=== PATIENT | female | born 1980 | race Native Hawaiian/Other Pacific Islander ===

== ENCOUNTER 2016-09-06 11:10 | Emergency (ER) | payer OTHER ==
[2016-09-06 11:20] VITALS: BP 97/65
== END 2016-09-06 16:40 | disposition left against medical advice (07) ==
LOC: ED 11:10
DX: R10.9 Unspecified abdominal pain (principal); R07.9 Chest pain, unspecified; Z53.21 Procedure and treatment not carried out due to patient leaving prior to being seen by health care provider
CPT/HCPCS: 93005

== ENCOUNTER 2016-09-07 00:34 | Inpatient (IN) | payer OTHER ==
[2016-09-07] MEDS ORDERED: Ketorolac INJ* 30 MG/ML 1 ML VIAL ONE (01:33)
[2016-09-07] MEDS ORDERED: Morphine INJ* 4 MG/ML 1 ML CARPUJECT ONE (01:33)
[2016-09-07] MEDS ORDERED: Ondansetron INJ* 2 MG/ML VIAL ONE (01:33)
[2016-09-07] MEDS ORDERED: Ondansetron INJ* 2 MG/ML VIAL IV ONE (01:34)
[2016-09-07] MEDS ORDERED: Ketorolac INJ* 30 MG/ML 1 ML VIAL IM ONE (01:34)
[2016-09-07] MEDS ORDERED: NS 0.9% 1000 ML* 1,000 ML IV ONE (01:34)
[2016-09-07] MEDS ORDERED: Morphine INJ* 2 MG/ML 1 ML CARPUJECT IV ONE (01:47)
[2016-09-07 01:48] LABS: Hematocrit 38 % (35-47); Hemoglobin 12.5 g/dl (12.0-16.0); Mean Corpuscular HGB Conc 33 g/dl (31-36); Mean Corpuscular Hemoglobin 28 pg (27-31); Mean Corpuscular Volume 86 fL (80-97); Mean Platelet Volume 10 um3 (7.4-10.4); Red Blood Count 4.42 10^6/ul (4.0-5.4); Red Cell Distribution Width 13 % (10.5-15); White Blood Count 6.3 10^3/ul (3.5-10.8)
[2016-09-07] MEDS: Morphine INJ* 4 MG/ML 1 ML CARPUJECT IV ONE ×2 (01:48→01:49)
[2016-09-07] MEDS ORDERED: Ketorolac INJ* 30 MG/ML 1 ML VIAL IV PUSH ONE (01:52)
[2016-09-07 02:00] LABS: AST 589 U/L (13-39); Albumin 4.1 g/dL (3.2-5.2); Alkaline Phosphatase 148 U/L (34-104); Anion Gap 6 mmol/L (2-11); BUN/Creatinine Ratio 15.3 (8-20); Blood Urea Nitrogen 11 mg/dL (6-24); CO2 Carbon Dioxide 26 mmol/L (22-32); Calcium 9.2 mg/dL (8.6-10.3); Chloride 102 mmol/L (101-111); EGFR African American 117.9 (>60); EGFR Non-African American 91.7 (>60); Globulin 3.1 g/dL (2-4); Glucose 127 mg/dL (70-100); Lipase 24 U/L (11.0-82.0); Potassium 3.5 mmol/L (3.5-5.0); Sodium 134 mmol/L (133-145); Total Protein 7.2 g/dL (6.4-8.9)
[2016-09-07 02:22] LABS: ALT 668 U/L (7-52)
[2016-09-07 03:47] LABS: Urine Bilirubin Negative (Negative); Urine Glucose Negative (Negative); Urine Nitrite Negative (Negative)
--- NOTE | 2016-09-07 05:28 | ED ---
Bola Hawthorne Aidan, scribed for Mihir Sotouel on 09/07/16 at 0151 . Abdominal Pain/Female - HPI Summary HPI Summary: 36 y/o female presents to the ED with a complaint of acute, constant, severe (10 /10) abdominal pain that began 4 days ago and suddenly became severe today. Associated symptoms include vomiting and abnormal BMs. Pt denies any alleviating or aggravating factors. Hx of cholecystectomy. - History of Current Complaint Chief Complaint: EDAbdPain Stated Complaint: RIGHT SIDED ABD PAIN Time Seen by Provider: 09/07/16 01:15 Hx Obtained From: Patient, Family/Minister Assistant Onset/Duration: Sudden Onset, Lasting Hours - intense pain began today with sudden onset, Lasting Days - Her pain started mildly 4 days ago, Still Present Timing: Constant Severity Initially: Mild Severity Currently: Severe Pain Intensity: 10 Pain Scale Used: 0-10 Numeric Location: Discrete At: RUQ, Discrete At: RLQ Radiates: No Character: Sharp Aggravating Factor(s): Other: - unknown Alleviating Factor(s): Other: - unknown Associated Signs and Symptoms: Positive: Vomiting, Other: - abnormal BMs Allergies/Adverse Reactions: Allergies Allergy/AdvReac Type Severity Reaction Status Date / Time Isoniazid Allergy Swelling Verified 09/06/13 14:47 Of Face,Lips,& Throat PMH/Surg Hx/FS Hx/Imm Hx Infectious Disease History: No Infectious Disease History: Reports: Traveled Outside the in Last 30 Days - [place] - Family History Known Family History: Positive: Hypertension - Social History Occupation: Employed Full-time Lives: With Family Alcohol Use: None Substance Use Type: Reports: None Smoking Status (MU): Never Smoked Tobacco Have You Smoked in the Last Year: No Review of Systems Constitutional: Negative Eyes: Negative ENT: Negative Cardiovascular: Negative Respiratory: Negative Positive: Abdominal Pain, Vomiting, Other - abnormal BMs. Negative: Diarrhea, Nausea Genitourinary: Negative Musculoskeletal: Negative Skin: Negative Neurological: Negative Psychological: Normal All Other Systems Reviewed And Are Negative: Yes Physical Exam Triage Information Reviewed: Yes Vital Signs On Initial Exam: Initial Vitals Temp Pulse Resp BP Pulse Ox 99.1 F 50 16 116/49 100 09/07/16 00:35 09/07/16 00:35 09/07/16 00:35 09/07/16 00:35 09/07/16 00:35 Vital Signs Reviewed: Yes Appearance: Positive: Well-Appearing, Pain Distress. Negative: No Pain Distress Skin: Positive: Warm, Skin Color Reflects Adequate Perfusion, Dry Head/Face: Positive: Normal Head/Face Inspection Eyes: Positive: EOMI, PRATIK ENT: Positive: Normal ENT inspection Neck: Positive: Supple, Nontender Respiratory/Lung Sounds: Positive: Clear to Auscultation, Breath Sounds Present Cardiovascular: Positive: RRR, Pulses are Symmetrical in both Upper and Lower Extremities Abdomen Description: Positive: Soft. Negative: Nontender - RLQ and RUQ tenderness Bowel Sounds: Positive: Present Musculoskeletal: Positive: Strength/ROM Intact Neurological: Positive: Sensory/Motor Intact, Alert, Oriented to Person Place, Time Psychiatric: Positive: Affect/Mood Appropriate AVPU Assessment: Alert Diagnostics - Vital Signs Vital Signs Temp Pulse Resp BP Pulse Ox 09/07/16 00:35 99.1 F 50 16 116/49 100 - Laboratory Result Diagrams: 09/07/16 01:10 09/07/16 01:10 Lab Statement: Any lab studies that have been ordered have been reviewed, and results considered in the medical decision making process. - CT ABD/PEL CT CT Interpretation: No Acute Changes - FINDINGS: THERE IS NO RIGHT OR LEFT URINARY TRACT STONE OR OBSTRUCTION. NO BOWEL OBSTRUCTION, FREE AIR, OR FREE LIQUID. NEGATIVE FOR DIVERTICULITIS OR COLITIS. NORMAL APPENDIX VISUALIZED. NORMAL LIVER. THE COMMON BILE DUCT IS DILATED. THIS MAY BE A POST CHOLECYSTECTOMY FINDING. HOWEVER IT IS MORE DILATED THAN IT WAS IN 2010. CORRELATION WITH LIVER ENZYMES RECOMMENDED TO MAKE SURE THERE IS NO BILIARY OBSTRUCTION. NORMAL SPLEEN. NORMAL PANCREAS. NORMAL ADRENAL GLAND. NO OTHER ACUTE INTRA-ABDOMINAL ABNORMALITIES. - Ultrasound No standard instances Ultrasound Interpretation: Positive (See Comments) - PELVIC US IMPRESSION: 2.7CM SIMPLE RIGHT OVARIAN CYST WITHOUT TORSION OR FREE LIQUID. Ultrasound Interpretation Completed By: Radiologist - PEST CONTROL WORKER HELPER Abdominal Pain Fem Course/Dx - Course Course Of Treatment: This is a 36 y/o female presenting with acute, constant, severe (/10) abdominal pain that began 4 days ago and suddenly became severe today. Associated symptoms include vomiting and abnormal BMs. Hx of cholecystectomy. She will be given morphine to reduce her pain. - Diagnoses Provider Diagnoses: Abdominal pain, Ovarian cyst Discharge - Discharge Plan Condition: Stable Disposition: HOME Discharge Disposition Comment: Please follow up with your primary care physician in the next 3 days. Prescriptions: Naproxen [Naproxen Dr] 500 mg PO TID #21 tab Patient Education Materials: Acute Abdominal Pain (ED), Ovarian Cyst (ED) The documentation as recorded by the Bola mary Aidan accurately reflects the service I personally performed and the decisions made by Brittany batista Emmanuel.
--- NOTE | 2016-09-07 07:49 | RAD ---
CLINICAL HISTORY: Right flank pain COMPARISON: July 02, 2010 TECHNIQUE: Multiple contiguous axial CT scans were obtained of the abdomen and pelvis, without intravenous contrast enhancement. Coronal and sagittal multiplanar reformations are submitted for review. Oral contrast was not administered. FINDINGS: The study is limited by the lack of intravenous contrast. This limits evaluation of the solid organs and vasculature. LUNG BASES: The lung bases are clear. LIVER: The liver is normal in shape, size, contour, and attenuation. BILE DUCTS: There is fusiform dilatation of the common duct up to 1.5 cm. This extends to the level of the ampulla. There is mild intrahepatic biliary dilatation. This has progressed from the 2010 examination GALLBLADDER: The gallbladder is not visualized. . PANCREAS: The pancreas is normal, without mass or ductal dilatation. SPLEEN: Normal in size and appearance. UPPER GI TRACT: Evaluation of the gastrointestinal tract is limited by incomplete gastric distention. The upper GI tract is unremarkable. SMALL BOWEL AND MESENTERY: The small bowel is normal in contour, course, and caliber. There is no obstruction or dilatation. COLON: The colon is normal in contour, course, caliber. There is no pericolonic inflammatory change. There is a tubular, vermiform, hollow viscus that is blind ending, and originates from the cecum, consistent with a normal appendix. There is no periappendiceal inflammatory change. ADRENALS: Normal bilaterally. KIDNEYS: The kidneys are normal in shape, size, contour, and axis. There is no hydronephrosis or nephrolithiasis. BLADDER: The bladder is incompletely distended but is grossly normal. PELVIC ORGANS: There is a 2.6 cm cystic lesion of the right hemipelvis. Pelvic organs otherwise normal for patient age and technique. AORTA: The aorta is normal. IVC: Unremarkable LYMPH NODES: There is no lymphadenopathy by size criteria. ABDOMINAL WALL: There is a small fat-containing of focal hernia. BONES AND SOFT TISSUES: There are mild diffuse degenerative changes. OTHER: None IMPRESSION: 1. 2.6 CM CYSTIC LESION OF THE RIGHT HEMIPELVIS, POSSIBLY AN OVARIAN CYST. 2. BILIARY DILATATION, PROGRESSED FROM 2010. 3. NO HYDRONEPHROSIS OR NEPHROLITHIASIS.
--- NOTE | 2016-09-07 07:53 | RAD ---
INDICATION: Right lower quadrant pain COMPARISON: None. TECHNIQUE: Real-time transabdominal only ultrasound examination of the female pelvis including grayscale and Doppler color flow imaging. FINDINGS: Uterus: The uterus is normal in size and echogenicity measuring 8.6 x 4.7 x 5.9 cm. The endometrial stripe is smooth and uniform measuring 11 mm in thickness. Ovaries: The right and left ovary measure 4.2 x 2.8 x 4.0 cm and 3.6 x 1.9 x 2.3 cm, respectively. Normal arterial and venous waveforms are identified. An avascular and anechoic structure in the right ovary measuring 2.7 cm in greatest dimension and is most consistent with a dominant follicle. Appearance is within normal limits for the patient's age. There is no free fluid in the cul-de-sac. IMPRESSION: Normal and age-appropriate pelvic ultrasound.
[2016-09-07] MEDS ORDERED: Morphine INJ* 2 MG/ML 1 ML CARPUJECT IV PRN (08:30)
--- NOTE | 2016-09-07 08:37 | RAD ---
HISTORY: Right upper quadrant pain, status post cholecystectomy COMPARISONS: CT dated September 07, 2016, ultrasound dated March 26, 2012 TECHNIQUE: Multiple transverse and longitudinal ultrasound images were obtained of the right upper quadrant of the abdomen using grayscale and color Doppler imaging. FINDINGS: LIVER: The liver is normal in shape, size, contour, and echogenicity. There are no focal parenchymal masses. There is normal hepatopedal flow of the portal vein on Doppler imaging. BILIARY TREE: There is dilatation of the common duct up to 1.4 cm to the level of the pancreatic head. This has progressed compared to the March 26, 2012 examination. GALLBLADDER: The patient is status post cholecystectomy. PANCREAS: The head of the pancreas is unremarkable. The tail of the pancreas is not well visualized secondary to overlying bowel gas. RIGHT KIDNEY: The right kidney is normal in shape, size, contour, and echogenicity. There is no hydronephrosis or nephrolithiasis. The right kidney measures 11 x 3.2 x 5.3 cm. AORTA AND IVC: The aorta and IVC are unremarkable. FLUID: There are no pleural effusions. There is no free fluid within the hepatorenal recess. OTHER FINDINGS: None. IMPRESSION: 1. DILATATION OF THE COMMON DUCT UP TO 1.4 CM, PROGRESSED FROM THE PREVIOUS EXAMINATION. 2. STATUS POST CHOLECYSTECTOMY
[2016-09-07 09:25] LABS: TSH (Thyroid Stimulating Horm) 0.41 mcIU/mL (0.34-5.60)
--- NOTE | 2016-09-07 12:21 | HP ---
ADMISSION HISTORY AND PHYSICAL: DATE OF ADMISSION: 09/07/16 PRIMARY CARE PROVIDER: Previously Vandana Bauman MD, now [facility], none assigned. HEALTHCARE PROXY: Her . CODE STATUS: Full. SOURCE OF INFORMATION: History obtained from interview with the patient, review of past medical records. RELIABILITY: Good. CHIEF COMPLAINT: Abdominal pain. 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 Four days prior, began to feel bloated with abdominal discomfort. She changed her diet, started eating less rice and increased her vegetable and fruit intake, however, 2 days prior to presentation she had increased pain. She presented to the emergency room yesterday after taking Tums without good effect. However, left prior to being seen because of the long wait. Overnight, her pain increased, described as sharp, right sided radiating around to her back, it has been constant. She had nausea and vomiting 3 times and several bowel movements that were not loose or diarrhea. She noticed her bowel movement was black, but also indicates that she had taken a pink substance, vomited most of it, which may have represented Bismuth salicylate. She did not have relief with the nausea, vomiting, or bowel movements, developed lightheadedness and presented to the emergency room for evaluation. Again, the pain was sharp, right sided, radiating around the back, constant for 4 days, no better or worse with food intake. She notes that it feels similar to the last time she presented with abdominal pain and elevated LFTs, although this is more strong or intense. In the emergency room, she received ketorolac and morphine, Zofran with adequate relief of pain and the hospitalist service was consulted for admission. When seen by the author, the patient was interactive and in no pain, had no active complaints. REVIEW OF SYSTEMS: As per HPI. Otherwise, all other systems negative. PAST MEDICAL HISTORY: 1. Cholecystectomy in 2006. 2. Hepatitis A at age 16. 3. Episode of increased LFTs while on isoniazid in the setting of questionable pancreatitis, that resolved spontaneously. 4. History of positive PPD. The patient reports that she had BCG vaccination in [place]. 5. History of bradycardia. SOCIAL HISTORY: No tobacco, alcohol, or illicits. FAMILY HISTORY: Grandmother with liver cancer, no history of CAD. ALLERGIES: To ISONIAZID. MEDICATIONS: None, did take Tums as well as pink liquid, which I suspect to be Bismuth salicylate. PHYSICAL EXAMINATION GENERAL: Lying 20 degrees, interactive and pleasant, in no apparent distress. VITAL SIGNS: When seen by this author, 112/60, heart rate 66, respiratory rate 16, oxygen saturation 98% on room air, T-max in the emergency room 99.1. HEENT: Oropharynx is clear. She has moist mucous membranes. Sclerae are anicteric, although she notes there may have been increasingly yellow over the last couple of days, cannot say if they are changed at this time. NECK: No cervical or supraclavicular lymphadenopathy. No goiter. HEART: She has regular rate and rhythm. No murmurs, rubs, or gallops. LUNGS: Lungs are clear to auscultation. ABDOMEN: Soft, nontender, and nondistended. Positive bowel sounds throughout. EXTREMITIES: Warm and well perfused without clubbing, cyanosis, or edema. NEUROLOGIC: She is alert and oriented x3. Cranial nerves are intact, although does note right side of her face potentially more numb than the left. Gait not assessed. PSYCH: No anxiety, agitation, or depression. DIAGNOSTIC STUDIES: Notable labs include glucose 127, total bilirubin 1.5, nonfractionated. AST 589, ALT is 668, alk phos is 148, total protein 7.2, albumin 4.1, lipase 24, beta hCG less than 0.6. INR 0.97. White blood cell count 6.3, hemoglobin 12.5, platelets 153. Urine notable for 1+ ketones, specific gravity 1.009. PERTINENT DATA: Official reads are not yet returned. CT abdomen and pelvis overnight read, left urinary tract stone. No bowel obstruction, free air or free liquid. Negative for diverticulitis/colitis. No normal appendix is visualized, normal liver. Common bile duct is dilated. This may be a postcholecystectomy findings, however, it is more dilated than it was in 2010. Recommendation was made to correlate with liver enzymes. Normal adrenal glands. No other acute intraabdominal abnormalities. The official read for pelvic ultrasound as well as right upper quadrant ultrasound are pending at this time. EKG with normal sinus bradycardia 44 beats per minute with normal limit axis, intervals. No ST or T wave changes. ASSESSMENT AND PLAN: This is a 36-year-old female returning with abdominal pain found with hepatitis. Increased transaminitis representing hepatitis, unknown etiology. She had similar episodes approximately 7 years that resolved spontaneously. It is unclear from our documentation whether it is in the setting of pancreatitis, although the patient does indicate a setting of pancreatitis, I believe one of the notes indicate an elevated lipase. That episode resolve spontaneously. We will check antismooth muscle and antimitochondrial, BREE titers. Consult Gastroenterology, await official reads from right upper quadrant ultrasound as well as transvaginal ultrasound, and trend LFTs. Place the patient on low-fat diet, continue to monitor. The patient may benefit from an MRCP, which was the plan in 2009 before the pain and the LFTs resolved spontaneously. Bradycardia. Now normal sinus rhythm with ventricular rate of 65. History of black stool x1 overnight. Suspect in the setting Bismuth salicylate ingestion. We will check CBC tomorrow. No additional intervention. Low suspicion for GI bleed. DVT prophylaxis. Low risk. Ambulate ad mo. Code Status. Full. [id number]/[facility] #: [id number] MTDD
[2016-09-07] MEDS: Ondansetron INJ* 2 MG/ML VIAL IV PRN ×2 (13:37→19:49)
[2016-09-07] MEDS: oxyCODONE TAB* 5 MG TAB PO PRN (14:22)
[2016-09-07] MEDS: Morphine INJ* 4 MG/ML 1 ML CARPUJECT IV PRN ×2 (15:08→19:49)
[2016-09-08] MEDS: Morphine INJ* 4 MG/ML 1 ML CARPUJECT IV PRN ×5 (00:41→22:49)
--- NOTE | 2016-09-08 03:48 | CONS ---
CONSULTATION REPORT: DATE OF CONSULTATION: 09/07/16 REQUESTING PHYSICIAN: Dr. Johnston. INDICATION: Abdominal pain. NARRATIVE: Mrs. Espino is a 36-year-old female who is status post cholecystectomy, has a distant history of hepatitis A and positive PPD, who comes in just not feeling well. She states that she was having diffuse abdominal pain and feeling weak. She did have nausea, 3 episodes of vomiting. She states that her stools had been normal up until last night and she had some loose stools. No blood in the stool. No unintentional weight loss. Her appetite is diminished. She denied any new medications, no sick contacts. She had been feeling fine up until a few days ago. Of note, she had a similar presentation in 2009 with similar symptoms at which time, it was felt that she had passed a gallstone. The patient states that these symptoms are more intense than the ones last time. PAST MEDICAL HISTORY: Please see the HPI. MEDICATION: None. ALLERGIES: To ISONIAZID. FAMILY HISTORY: Liver cancer, coronary artery disease. SOCIAL HISTORY: No tobacco or alcohol. REVIEW OF SYSTEMS: 12 systems were reviewed, other than that mentioned in the HPI were unremarkable. PHYSICAL EXAM: Temperature is 98.1, blood pressure is 114/71, pulse is 47. General: A mildly ill-appearing female; in no apparent distress; sitting up in bed, talking with her 4 children. Alert, oriented, pleasant, and fluent. HEENT : Mucous membranes are moist without lesions, ulcers, or exudate. Head is normocephalic, atraumatic. Neck: Supple. Trachea is midline. Heart: Regular rate and rhythm. Lungs: Clear to auscultation. Abdomen: Positive bowel sounds. Soft, nondistended. No hepatosplenomegaly, masses. She is mildly diffusely tender throughout. No rebound and no guarding. DIAGNOSTIC STUDIES/LAB DATA: Of note, hepatitis A, B and C are negative. White count is 6.3, hemoglobin is 12.5, platelets of 153, INR is 0.97, bilirubin is 1.5. AST is 589, ALT 668, alk phos is 148. CT shows an ovarian cyst. Right upper quadrant ultrasound shows a 1.4 cm common bile duct. ASSESSMENT AND PLAN: This is a pleasant 36-year-old female who possibly could have had a passed gallstone, mononucleosis, autoimmune hepatitis, primary biliary cirrhosis. Her hepatitis panel is negative so far. Her labs really do not improve and I think by tomorrow, we should obtain an MRCP. We will continue to follow. [id number]/[facility] #: [id number] JEFF
[2016-09-08 06:47] LABS: Hematocrit 36 % (35-47); Hemoglobin 11.9 g/dl (12.0-16.0); Mean Corpuscular HGB Conc 33 g/dl (31-36); Mean Corpuscular Hemoglobin 28 pg (27-31); Mean Corpuscular Volume 86 fL (80-97); Mean Platelet Volume 10 um3 (7.4-10.4); Red Cell Distribution Width 13 % (10.5-15); White Blood Count 5.1 10^3/ul (3.5-10.8)
[2016-09-08 07:00] LABS: Albumin 3.6 g/dL (3.2-5.2); BUN/Creatinine Ratio 10.8 (8-20); Calcium 8.5 mg/dL (8.6-10.3); Direct Bilirubin 0.2 mg/dL (0.03-0.18); EGFR African American 114.2 (>60); EGFR Non-African American 88.8 (>60); Globulin 2.9 g/dL (2-4); Indirect Bilirubin 0.6 mg/dL (0.3-1.0); Potassium 3.5 mmol/L (3.5-5.0); Total Bilirubin 0.8 mg/dL (0.2-1.0); Total Protein 6.5 g/dL (6.4-8.9)
[2016-09-08] MEDS ORDERED: Influenza VAC *QUAD* 2016-17* 0.5 ML SYRINGE IM ONE (09:00)
[2016-09-08] MEDS: Ondansetron INJ* 2 MG/ML VIAL IV PRN ×2 (09:36→19:04)
[2016-09-08] MEDS: oxyCODONE TAB* 5 MG TAB PO PRN (10:25)
[2016-09-08] MEDS ORDERED: HYDROmorphone INJ* 1 MG/ML CARPUJECT SYRINGE IV SLOW PU ONE (11:13)
[2016-09-08] MEDS ORDERED: Polyethylene Glycol 3350* 17 GM PACKET PO PRN (15:38)
[2016-09-08 16:04] LABS: Smooth Muscle Antibody Negative (Negative)
[2016-09-08] MEDS: Docusate CAP* 100 MG PO PRN (16:22)
[2016-09-08 16:25] LABS: Mitochondria M2 Antibody <0.1 U
--- NOTE | 2016-09-08 18:22 | PN ---
Subjective Date of Service: 09/08/16 Interval History: Pain improved overnight however severe exacerbation after eating breakfast Developed nausea without vomiting tolerated clear liquids in the afternoon better Objective Active Medications: Docusate Sodium (Colace Cap*) 200 mg PO DAILY PRN PRN Reason: CONSTIPATION Last Admin: 09/08/16 16:22 Dose: 200 mg Morphine Sulfate (Morphine Inj (Syringe)*) 2 mg IV Q2H PRN PRN Reason: PAIN Ondansetron HCl (Zofran Inj*) 4 mg IV Q4H PRN PRN Reason: NAUSEA Last Admin: 09/08/16 09:36 Dose: 4 mg Oxycodone HCl (Roxycodone Tab*) 5 mg PO Q6H PRN PRN Reason: PAIN Last Admin: 09/08/16 10:25 Dose: 5 mg Polyethylene Glycol/Electrolytes (Miralax*) 17 gm PO DAILY PRN PRN Reason: CONSTIPATION Vital Signs 09/08/16 16:14 Temperature 98.2 F Oxygen Devices in Use Now: None Appearance: NAD Eyes: No Scleral Icterus, PERRLA Ears/Nose/Mouth/Throat: NL Teeth, Lips, Gums, Clear Oropharnyx, Mucous Membranes Moist Neck: NL Appearance and Movements; NL JVP, Trachea Midline Respiratory: Symmetrical Chest Expansion and Respiratory Effort, Clear to Auscultation Cardiovascular: NL Sounds; No Murmurs; No JVD, RRR Abdominal: - - mild TTP RUQ, soft, ND, +bs Extremities: No Edema Skin: No Rash or Ulcers Neurological: Alert and Oriented x 3 Result Diagrams: 09/08/16 05:58 09/08/16 05:58 Assess/Plan/Problems-Billing Assessment: 36 yo F h/o cholecystectomy with episode of elevated LFTs 3 years later ( possibly in setting of pancraetitis) now returning with similar presentation of abdominal pain and elevated LFTs spontaneously resolving - Patient Problems (1) Hepatitis Comment: LFTs resolving If pain continues will plan on MRCP test for autoimmune hepatitis and primary biliary cirrhosis pending (2) Bradycardia Comment: baseline stable (3) DVT prophylaxis Comment: low risk ambulate ad mo
[2016-09-09] MEDS: Morphine INJ* 4 MG/ML 1 ML CARPUJECT IV PRN (05:58)
[2016-09-09 06:30] LABS: Albumin 3.7 g/dL (3.2-5.2); Direct Bilirubin 0.2 mg/dL (0.03-0.18); Indirect Bilirubin 0.4 mg/dL (0.3-1.0); Total Bilirubin 0.6 mg/dL (0.2-1.0); Total Protein 6.7 g/dL (6.4-8.9)
[2016-09-09] MEDS: Docusate CAP* 100 MG PO PRN (08:09)
[2016-09-09] MEDS ORDERED: Influenza VAC *QUAD* 2016-17* 0.5 ML SYRINGE IM ONE (09:00)
--- NOTE | 2016-09-09 11:44 | RAD ---
Indication: Abnormal liver enzymes, abdominal pain. Image sequences: Coronal T2, axial T2 fat sat images of the biliary system was obtained. Multiple maximum intensity projection images were obtained. The patient is status post cholecystectomy. There is a dilated common hepatic duct and common bile duct. The maximum diameter of the common hepatic duct is approximately 19 mm with no evidence of filling defect. I cannot totally exclude an ampullary lesion. The distal common duct is not well visualized. The left and right hepatic ducts are intact. No retroperitoneal adenopathy is noted. No dilated loops of bowel are noted. Small pleural effusions are noted. IMPRESSION: Common hepatic duct measures up to 19 mm. No filling defects are noted in the common duct. I cannot totally exclude a ampullary lesion. Small pleural effusions are noted.
[2016-09-09] MEDS: oxyCODONE TAB* 5 MG TAB PO PRN ×3 (15:18→23:27)
[2016-09-09] MEDS ORDERED: HYDROmorphone TAB* 2 MG PO ONE (17:07)
--- NOTE | 2016-09-09 18:09 | PN ---
Subjective Date of Service: 09/09/16 Interval History: Seen and examined Pain is still persistent which is burning and comes in waves Feels pains are independent of food now No N/V Objective Active Medications: Docusate Sodium (Colace Cap*) 200 mg PO DAILY PRN PRN Reason: CONSTIPATION Last Admin: 09/09/16 08:09 Dose: 200 mg Ondansetron HCl (Zofran Inj*) 4 mg IV Q4H PRN PRN Reason: NAUSEA Last Admin: 09/08/16 19:04 Dose: 4 mg Oxycodone HCl (Roxycodone Tab*) 15 mg PO Q4H PRN PRN Reason: PAIN Last Admin: 09/09/16 15:18 Dose: 15 mg Polyethylene Glycol/Electrolytes (Miralax*) 17 gm PO DAILY PRN PRN Reason: CONSTIPATION Vital Signs 09/08/16 09/08/16 09/08/16 19:01 20:01 22:49 Temperature Pulse Rate Respiratory 16 16 20 Rate Blood Pressure (mmHg) O2 Sat by Pulse Oximetry 09/08/16 09/08/16 09/09/16 23:19 23:49 01:13 Temperature 98.2 F Pulse Rate 50 Respiratory 17 16 20 Rate Blood Pressure 115/60 (mmHg) O2 Sat by Pulse 100 Oximetry 09/09/16 09/09/16 09/09/16 05:58 06:58 07:17 Temperature 96.9 F Pulse Rate 48 Respiratory 20 16 20 Rate Blood Pressure 108/55 (mmHg) O2 Sat by Pulse 100 Oximetry 09/09/16 09/09/16 09/09/16 08:00 15:18 15:21 Temperature 98.0 F Pulse Rate 54 Respiratory 20 16 16 Rate Blood Pressure 127/66 (mmHg) O2 Sat by Pulse 100 Oximetry 09/09/16 17:15 Temperature Pulse Rate Respiratory 18 Rate Blood Pressure (mmHg) O2 Sat by Pulse Oximetry Oxygen Devices in Use Now: None Appearance: NAD Eyes: No Scleral Icterus, PERRLA Ears/Nose/Mouth/Throat: NL Teeth, Lips, Gums, Clear Oropharnyx, Mucous Membranes Moist Neck: NL Appearance and Movements; NL JVP, Trachea Midline Respiratory: Symmetrical Chest Expansion and Respiratory Effort, Clear to Auscultation Cardiovascular: NL Sounds; No Murmurs; No JVD, RRR Abdominal: No Hepatosplenomegaly, - - soft, mild TTP RUQ, +bs, ND Lymphatic: No Cervical Adenopathy, No Axillary Adenopathy Extremities: No Edema Skin: No Rash or Ulcers Neurological: Alert and Oriented x 3 Result Diagrams: 09/08/16 05:58 09/08/16 05:58 Assess/Plan/Problems-Billing Assessment: 36 yo F h/o cholecystectomy with episode of elevated LFTs 3 years later ( possibly in setting of pancraetitis) now returning with similar presentation of abdominal pain and elevated LFTs spontaneously resolving - Patient Problems (1) Hepatitis Comment: LFTs resolving CBD greatly distended on MRCP with concern for ampullary lesion Discussed with Dr. Longo, pt will need ERCP as outpatient. He will arrange follow up through his office with Dr. Pollard. Plan is to control pain at this point until pt receives ERCP (2) Bradycardia Comment: baseline stable (3) DVT prophylaxis Comment: low risk ambulate ad mo Status and Disposition: likely tomorrow if pain controlled
[2016-09-10] MEDS: oxyCODONE TAB* 5 MG TAB PO PRN ×4 (04:07→21:40)
[2016-09-10 06:27] LABS: Direct Bilirubin 0.2 mg/dL (0.03-0.18); Globulin 3.4 g/dL (2-4); Indirect Bilirubin 0.3 mg/dL (0.3-1.0); Total Bilirubin 0.5 mg/dL (0.2-1.0); Total Protein 7.4 g/dL (6.4-8.9)
[2016-09-10] MEDS: Docusate CAP* 100 MG PO PRN (08:10)
[2016-09-10] MEDS ORDERED: Influenza VAC *QUAD* 2016-17* 0.5 ML SYRINGE IM ONE (09:00)
--- NOTE | 2016-09-10 10:01 | PN ---
Subjective Date of Service: 09/10/16 Interval History: Pt is feeling about the same except this AM while in the shower she states she developed some dizziness. She states she feels weak. She states the RUQ pain is about the same and is only manageable with taking pain medication q4hr. She states that eating even jello makes her pain worse. Objective Active Medications: Docusate Sodium (Colace Cap*) 200 mg PO DAILY PRN PRN Reason: CONSTIPATION Last Admin: 09/10/16 08:10 Dose: 200 mg Ondansetron HCl (Zofran Inj*) 4 mg IV Q4H PRN PRN Reason: NAUSEA Last Admin: 09/08/16 19:04 Dose: 4 mg Oxycodone HCl (Roxycodone Tab*) 15 mg PO Q4H PRN PRN Reason: PAIN Last Admin: 09/10/16 08:10 Dose: 15 mg Polyethylene Glycol/Electrolytes (Miralax*) 17 gm PO DAILY PRN PRN Reason: CONSTIPATION Vital Signs 09/09/16 09/09/16 09/09/16 15:18 15:21 17:15 Temperature 98.0 F Pulse Rate 54 Respiratory 16 16 18 Rate Blood Pressure 127/66 (mmHg) O2 Sat by Pulse 100 Oximetry 09/09/16 09/09/16 09/09/16 17:18 19:15 19:35 Temperature Pulse Rate Respiratory 16 18 18 Rate Blood Pressure (mmHg) O2 Sat by Pulse Oximetry 09/09/16 09/09/16 09/09/16 20:00 21:35 23:00 Temperature 97.6 F Pulse Rate Respiratory 18 18 Rate Blood Pressure (mmHg) O2 Sat by Pulse Oximetry 09/09/16 09/09/16 09/10/16 23:27 23:38 01:27 Temperature Pulse Rate 48 Respiratory 20 16 20 Rate Blood Pressure 119/73 (mmHg) O2 Sat by Pulse 100 Oximetry 09/10/16 09/10/16 09/10/16 04:07 06:07 07:36 Temperature 97.5 F Pulse Rate 51 Respiratory 18 18 15 Rate Blood Pressure 104/65 (mmHg) O2 Sat by Pulse 100 Oximetry 09/10/16 08:10 Temperature Pulse Rate Respiratory 16 Rate Blood Pressure (mmHg) O2 Sat by Pulse Oximetry Oxygen Devices in Use Now: None Appearance: Young female sitting up in bed, NAD Eyes: No Scleral Icterus Ears/Nose/Mouth/Throat: Mucous Membranes Moist Respiratory: Symmetrical Chest Expansion and Respiratory Effort, Clear to Auscultation Cardiovascular: NL Sounds; No Murmurs; No JVD, RRR, No Edema Abdominal: - - + BS, soft, ND, tender to palpation in RUQ Extremities: No Clubbing, Cyanosis Skin: No Rash or Ulcers, No Nodules or Sclerosis Neurological: Alert and Oriented x 3 Result Diagrams: 09/08/16 05:58 09/08/16 05:58 Assess/Plan/Problems-Billing Ms Espino is a 36 yo F who has a h/o cholecystectomy followed by an episode of elevated LFTs and abdominal pain who presented to the ER with c/o abdominal pain and was found again to have elevated LFTs. - Patient Problems (1) Hepatitis Current Visit: Yes Status: Acute Comment: LFTs are trending down except the alkaline phosphatase that has increased. CBD and common hepatic duct are dilated on MRCP. Will discuss with Dr. Longo as pt's symptoms are no better today. She continues to have pain in the RUQ. ? stretch of the liver capsule vs pain secondary to the hepatitis. Testing for autoimmune processes are negative. Heptatits panel is negative. ? ERCP as inpatient vs outpatient. (2) Dizziness Current Visit: Yes Status: Acute Code(s): R42 - DIZZINESS AND GIDDINESS SNOMED Code(s): 606799652 Comment: This am the patient c/o becoming dizzy and weak. She states she was in the shower when this developed. Worse with looking left. She describes a spinning sensation. She has not been eating much and taking oxycodone 15mg q4hr and I wonder if this is contributing some to her dizziness. Will try meclizine and monitor her symptoms. (3) Bradycardia Current Visit: Yes Status: Acute Code(s): R00.1 - BRADYCARDIA, UNSPECIFIED SNOMED Code(s): 18733397 Comment: Stable and baseline. (4) DVT prophylaxis Current Visit: Yes Status: Acute Code(s): [id number] - SNOMED Code(s): 056662880 Comment: ambulation (5) Full code status Current Visit: Yes Status: Acute Code(s): Z78.9 - OTHER SPECIFIED HEALTH STATUS SNOMED Code(s): 754345299 Status and Disposition: .
[2016-09-10] MEDS: Meclizine TAB* 12.5 MG PO SCH ×3 (11:56→21:40)
[2016-09-10] MEDS ORDERED: Polyethylene Glycol 3350* 17 GM PACKET PO SCH (21:00)
[2016-09-11] MEDS: Meclizine TAB* 12.5 MG PO SCH (05:57)
[2016-09-11 06:36] LABS: Amylase 65 U/L (29-103); Lipase 49 U/L (11.0-82.0)
[2016-09-11 07:29] VITALS: BP 108/62
--- NOTE | 2016-09-11 11:04 | PN ---
Subjective Date of Service: 09/11/16 Interval History: Pt is feeling much better. Her pain is still about a 3 but she is not needing the pain medication as much. She is no longer dizzy. She feels ready to go home. Objective Active Medications: Docusate Sodium (Colace Cap*) 200 mg PO DAILY PRN PRN Reason: CONSTIPATION Last Admin: 09/10/16 08:10 Dose: 200 mg Meclizine HCl (Antivert Tab*) 25 mg PO Q8HR MIGUEL A Last Admin: 09/11/16 05:57 Dose: 25 mg Ondansetron HCl (Zofran Inj*) 4 mg IV Q4H PRN PRN Reason: NAUSEA Last Admin: 09/08/16 19:04 Dose: 4 mg Oxycodone HCl (Roxycodone Tab*) 10 mg PO Q4H PRN PRN Reason: PAIN Last Admin: 09/10/16 21:40 Dose: 10 mg Polyethylene Glycol/Electrolytes (Miralax*) 17 gm PO DAILY PRN PRN Reason: CONSTIPATION Polyethylene Glycol/Electrolytes (Miralax*) 17 gm PO BEDTIME [facility] Last Admin: 09/10/16 21:39 Dose: 17 gm Vital Signs 09/10/16 09/10/16 09/10/16 11:55 13:55 15:10 Temperature 97.5 F Pulse Rate 45 Respiratory 16 16 20 Rate Blood Pressure 110/68 (mmHg) O2 Sat by Pulse 100 Oximetry 09/10/16 09/10/16 09/10/16 20:00 21:40 23:00 Temperature 98 F Pulse Rate 74 Respiratory 16 16 16 Rate Blood Pressure 122/56 (mmHg) O2 Sat by Pulse 99 Oximetry 09/10/16 09/11/16 09/11/16 23:40 07:28 07:49 Temperature Pulse Rate 79 Respiratory 16 16 16 Rate Blood Pressure 108/62 (mmHg) O2 Sat by Pulse 99 Oximetry 09/11/16 08:15 Temperature 98.8 F Pulse Rate Respiratory Rate Blood Pressure (mmHg) O2 Sat by Pulse Oximetry Oxygen Devices in Use Now: None Appearance: Young female sitting up in bed, NAD Eyes: No Scleral Icterus Ears/Nose/Mouth/Throat: Mucous Membranes Moist Respiratory: Symmetrical Chest Expansion and Respiratory Effort, Clear to Auscultation Cardiovascular: NL Sounds; No Murmurs; No JVD, RRR, No Edema Abdominal: - - BS+ soft, ND, mild tenderness in the RUQ Extremities: No Clubbing, Cyanosis Skin: No Rash or Ulcers, No Nodules or Sclerosis Neurological: Alert and Oriented x 3 Result Diagrams: 09/08/16 05:58 09/08/16 05:58 Assess/Plan/Problems-Billing Ms Espino is a 36 yo F who has a h/o cholecystectomy followed by an episode of elevated LFTs and abdominal pain who presented to the ER with c/o abdominal pain and was found again to have elevated LFTs. - Patient Problems (1) Hepatitis Current Visit: Yes Status: Acute Comment: Plan is for the patient to go home today. Dr. Longo saw the patient yesterday and questions sphincter of Oddi dysfunction. She will need an outpatient ERCP with manometry. She will be contacted by the GI office with an appt date/time. (2) Dizziness Current Visit: Yes Status: Acute Code(s): R42 - DIZZINESS AND GIDDINESS SNOMED Code(s): 046073605 Comment: Resolved. (3) Bradycardia Current Visit: Yes Status: Acute Code(s): R00.1 - BRADYCARDIA, UNSPECIFIED SNOMED Code(s): 07465067 Comment: Stable and baseline. (4) DVT prophylaxis Current Visit: Yes Status: Acute Code(s): [id number] - SNOMED Code(s): 068519318 Comment: ambulation (5) Full code status Current Visit: Yes Status: Acute Code(s): Z78.9 - OTHER SPECIFIED HEALTH STATUS SNOMED Code(s): 193493045 Status and Disposition: d/c home today
--- NOTE | 2016-09-11 12:58 | DS ---
DATE OF ADMISSION: 09/07/2016. DATE OF DISCHARGE: 09/11/2016. PRIMARY CARE PROVIDER: Connor Cullen NP. PRINCIPAL DIAGNOSES: 1. 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 2. Abdominal pain - possibly secondary to sphincter of Oddi dysfunction. DISCHARGE MEDICATIONS: 1. Oxycodone 5 mg p.o. q.4 hours prn pain, dispense 20 tablets. 2. Zofran ODT 4 mg p.o. q.6 hours prn nausea. HOSPITAL COURSE: Ms. Espino is a 36-year-old female who has a history of cholecystectomy in the past followed by an episode of transaminitis a few years later which sounds to have resolved on its own, who presents to the emergency room with complaints of right upper quadrant abdominal pain and was found to have elevated LFT's. The patient's initial AST was elevated at 589, her initial ALT was 668, and alkaline phosphatase 148. Her AST and ALT have trended down over the course of the last several days; however, her alk phos on the day prior to discharge was more elevated than it had been. Her lipase was normal during the course of the hospitalization. The patient was seen in consultation by Dr. Longo who recommended MRCP. This was performed on 2016. This revealed common hepatic duct measuring up to 19 mm. No filling defects were noted within the common duct. It was felt that an ampullary lesion could not be totally excluded. The patient's pain had remained fairly constant until the day of discharge. It is much better. She is tolerating a full liquid diet. At this point, the patient is anxious to be discharged to home. Dr. 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 What he has recommended is an ERCP as an outpatient with manometry. Unfortunately, this is unable to be done in the [place] area and the patient will be referred to [place] to have this done. The patient will be contacted by Dr. Longo's office with an appointment date and time for the ERCP. At this point, it is felt that the patient is stable for discharge home. She will continue on a regular diet as tolerated. She has been instructed to return to the emergency room is she has any worsening of her symptoms. FOLLOW-UP CONCERNS: The patient is being discharged home today, 09/11/2016. She is to follow-up with Connor Cullen NP in the next five to seven days. ACTIVITY LEVEL: As tolerated. DIET: Regular as tolerated. CONDITION ON DISCHARGE: Stable. Thirty-five minutes were spent discharging this patient. CC: Connor Cullen NP * [id number]/[facility] #: [id number] [facility] HOSPITALYuri
== END 2016-09-11 13:00 | disposition home or self-care (01) ==
LOC: ED 00:34 → MED 07:46 → OBSVTOIN 09-08 15:45
PROVIDERS: ADMIT Internal Medicine; ATTEND Hospitalist
DX: K91.5 Postcholecystectomy syndrome (principal); R00.1 Bradycardia, unspecified; R42 Dizziness and giddiness; R74.0 Nonspecific elevation of levels of transaminase and lactic acid dehydrogenase [LDH]; R10.9 Unspecified abdominal pain; Z90.49 Acquired absence of other specified parts of digestive tract; Z80.0 Family history of malignant neoplasm of digestive organs; Z88.8 Allergy status to other drugs, medicaments and biological substances; Z82.49 Family history of ischemic heart disease and other diseases of the circulatory system
CPT/HCPCS: 36415; 74176; 74181; 76376; 76705; 76856; 80048; 80053; 80074; 80076; 81003; 82150; 82728; 83516; 83690; 84443; 84702; 85025; 85610; 85730; 86038; 86255; 86376; 90686; 99284; A9270-GY; G0378; J1170; J1885; J2270; J2405

== ENCOUNTER → 2018-08-13 12:25 | Emergency (ER) | payer OTHER ==
[~2018-08-13 12:25] MED LIST: Acetaminophen TAB* 325 MG PO ONE; guaiFENesin/CODIEN 100MG-10MG* 5 ML UDC PO ONE
[2018-08-13 16:21] VITALS: BP 124/82
--- NOTE | 2018-08-15 06:28 | ED ---
Throat Pain/Nasal Congestion - HPI Summary HPI Summary: Patient is an otherwise healthy 38-year-old female presenting to the ED with chest congestion, nasal congestion, rhinorrhea without fevers. Endorses sweats and chills. Symptoms have been present 8 days. She has had the flu vaccination, other immunizations are up-to-date. She denies any sore throat. She denies any nausea, vomiting, diarrhea. She denies any body aches. - History of Current Complaint Chief Complaint: EDUpperRespComplaint Time Seen by Provider: 08/13/18 14:02 Hx Obtained From: Patient Onset/Duration: Sudden Onset Severity: Moderate Associated Signs And Symptoms: Positive: Negative - Epiglottits Risk Factors Epiglottis Risk Factors: Negative - Allergies/Home Medications Allergies/Adverse Reactions: Allergies Allergy/AdvReac Type Severity Reaction Status Date / Time isoniazid Allergy Swelling Verified 08/13/18 12:32 Of Face,Lips,& Throat MS Isoniazid [Isoniazid] Allergy Swelling Verified 09/06/13 14:47 Of Face,Lips,& Throat PMH/Surg Hx/FS Hx/Imm Hx Previously Healthy: Yes Endocrine/Hematology History: Reports: Other Endocrine/Hematological Disorders - pancreatitis Cardiovascular History: Denies: Hx Pacemaker/ICD Sensory History: Reports: Hx Contacts or Glasses - not with her - reading glasses Denies: Hx Hearing Aid Opthamlomology History: Reports: Hx Contacts or Glasses - not with her - reading glasses Psychiatric History: Denies: Hx Panic Disorder - Surgical History Surgery Procedure, Year, and Place: C-SEC, [facility]ST[facility] - Immunization History Date of Influenza Vaccine: 2017 Hx Pertussis Vaccination: No Immunizations Up to Date: Yes Infectious Disease History: No Infectious Disease History: Denies: Traveled Outside the [place] in Last 30 Days - Family History Known Family History: Positive: Hypertension - Social History Occupation: Employed Full-time Lives: With Family Alcohol Use: None Hx Substance Use: No Substance Use Type: Reports: None Hx Tobacco Use: No Smoking Status (MU): Never Smoked Tobacco Have You Smoked in the Last Year: No Review of Systems Positive: Chills. Negative: Fever, Fatigue, Skin Diaphoresis Negative: Blurred Vision, Diplopia, Drainage, Erythema Positive: Nasal Discharge. Negative: Sore Throat, Ear Ache Negative: Palpitations, Chest Pain Positive: Cough - with production. Negative: Shortness Of Breath Genitourinary: Negative Positive: no symptoms reported, see HPI Negative: Arthralgia, Myalgia Skin: Negative All Other Systems Reviewed And Are Negative: Yes Physical Exam Triage Information Reviewed: Yes Vital Signs On Initial Exam: Initial Vitals Temp Pulse Resp BP Pulse Ox 98.6 F 73 16 155/125 100 08/13/18 12:32 08/13/18 12:32 08/13/18 12:32 08/13/18 12:32 08/13/18 12:32 Vital Signs Reviewed: Yes Appearance: Positive: Well-Nourished, Ill-Appearing Skin: Positive: Skin Color Reflects Adequate Perfusion Head/Face: Positive: Normal Head/Face Inspection Eyes: Positive: EOMI, PRATIK, Conjunctiva Clear ENT: Positive: Sinus tenderness, Uvula midline. Negative: Pharynx normal, Pharyngeal erythema, Tonsillar swelling, Tonsillar exudate Neck: Positive: Nontender Respiratory/Lung Sounds: Positive: Breath Sounds Present Cardiovascular: Positive: RRR, Pulses are Symmetrical in both Upper and Lower Extremities Musculoskeletal: Positive: Strength/ROM Intact Neurological: Positive: Sensory/Motor Intact, Alert, Oriented to Person Place, Time, Speech Normal Psychiatric: Positive: Affect/Mood Appropriate AVPU Assessment: Alert Diagnostics - Vital Signs Vital Signs Temp Pulse Resp BP Pulse Ox 08/13/18 16:21 98.5 F 54 20 124/82 99 08/13/18 12:32 98.6 F 73 16 155/125 100 - Laboratory Lab Statement: Any lab studies that have been ordered have been reviewed, and results considered in the medical decision making process. EENT Course/Dx - Course Course Of Treatment: Patient is evaluated for upper respiratory and cold symptoms. On physical examination, TMs without erythema, no nasal pressure or congestion, no pharyngeal erythema. She has been endorsing sweats and chills without fevers. She endorses cough with production and rhinorrhea. Chest x- ray negative for any acute cardiopulmonary disease. She is given prescription for Robitussin and Zithromax. - Diagnoses Provider Diagnoses: Upper respiratory infection Discharge - Sign-Out/Discharge Documenting (check all that apply): Patient Departure - Discharge Plan Condition: Stable Disposition: HOME Prescriptions: Azithromyxin BRIANNA (NF) [Z-Brianna (Zithromax) 250 mg tabs #6] 2 tab PO .TODAY, THEN 1 DAILY #6 tab guaiFENesin/CODIEN 100MG-10MG* [Robitussin AC 100Mg-10Mg*] 10 ml PO BEDTIME # 120 udc MDD 10 Patient Education Materials: Acute Bronchitis (ED) Referrals: Richie Girard MD [Primary Care Provider] - Additional Instructions: PLEASE TAKE MEDICATIONS DIRECTED TYLENOL FOR ANY HEADACHE OR FEVERS - Billing Disposition and Condition Condition: STABLE Disposition: Home
== END | disposition home or self-care (01) ==
LOC: ED 12:25
DX: J06.9 Acute upper respiratory infection, unspecified (principal); R05 Cough; R68.83 Chills (without fever)
CPT/HCPCS: 71046; 99282; A9270-GY